=== PATIENT | female | born 1950 | race Caucasian/White ===

== ENCOUNTER 2018-09-18 15:07 | Observation (INO) | payer OTHER, BC ==
[2018-09-18] MEDS ORDERED: SODIUM CHLORIDE 0.9% 500 ML INFUS.BAG IV ONE ×2 (15:53→21:29)
--- NOTE | 2018-09-18 16:00 | PDOC ---
History of Present Illness - General Chief Complaint: Weakness Stated Complaint: Blood Sugar Problem Time Seen by Provider: 09/18/18 15:51 - History of Present Illness Initial Comments: The patient is a 68F w/ a history of CAD/SC (plavix), T2DM, reported a-fib who presents for evaluation of generalized weakness, nausea, and NB diarrhea since 0200. Since that time she endorses general weakness/malaise. Patient reports finishing a course of abx 2wks ago for UTI. Denies fevers/chills, chest pain, LOWRY, blurry vision, abdominal pain, emesis, sick contacts. Denies falls/LOC Per daughter, patient is reportedly poorly controlled diabetic 2/2 non- compliance 09/18/18 16:06 Past History - Past Medical History Allergies/Adverse Reactions: Allergies Allergy/AdvReac Type Severity Reaction Status Date / Time aspirin Allergy Mild THROAT Verified 09/18/18 15:31 SWELLS Home Medications: Ambulatory Orders Clopidogrel Bisulfate [Plavix -] 75 mg PO DAILY 01/03/15 Levothyroxine [Synthroid -] 112 mcg PO DAILY 01/03/15 Rosuvastatin Calcium [Crestor] 10 mg PO DAILY 01/03/15 predniSONE [Deltasone -] 10 mg PO DAILY 01/03/15 Albuterol Sulfate Inhaler - [Ventolin HFA Inhaler -] 1 - 2 inh PO QID PRN Ranitidine HCl [Zantac 75] 75 mg PO DAILY 03/13/16 Hydroxyzine HCl 25 mg PO Q6H 09/18/18 Insulin Regular [NOVOLIN R VIAL *IVPUSH / ER / ICU Only*] 0 units SQ BIDAC 09/18 Anemia: No Asthma: Yes Cancer: No Cardiac Disorders: Yes (IRREGULAR HEART BEAT) CVA: No COPD: Yes CHF: No Dementia: No Diabetes: Yes GI Disorders: Yes (ACID REFLUX, PANCREATITIS) Disorders: No HTN: Yes Hypercholesterolemia: Yes Liver Disease: No Seizures: No Thyroid Disease: Yes (HYPO) - Surgical History Abdominal Surgery: Yes (REMOVE STONE IN BILE DUCT) Appendectomy: No Cardiac Surgery: No Cholecystectomy: Yes Lung Surgery: No Neurologic Surgery: No Orthopedic Surgery: No - Immunization History Immunization Up to Date: Yes - Suicide/Smoking/Psychosocial Hx Smoking Status: No Smoking History: Never smoked Have you smoked in the past 12 months: No Number of Cigarettes Smoked Daily: 0 If you are a former smoker, when did you quit?: 1979 Information on smoking cessation initiated: No Hx Alcohol Use: No Drug/Substance Use Hx: No Substance Use Type: None Hx Substance Use Treatment: No Review of Systems - Review of Systems Able to Perform ROS?: Yes Comments:: GENERAL/CONSTITUTIONAL: No fever or chills HEAD, EYES, EARS, NOSE AND THROAT: No change in vision. No ear pain or discharge. No sore throat CARDIOVASCULAR: No chest pain or shortness of breath GASTROINTESTINAL: per HPI GENITOURINARY: No dysuria, frequency, or change in urination MUSCULOSKELETAL: No joint or muscle swelling or pain. No neck or back pain SKIN: No rash NEUROLOGIC: No headache, vertigo, loss of consciousness, or change in strength/ sensation ENDOCRINE: No increased thirst. No abnormal weight change HEMATOLOGIC/LYMPHATIC: No anemia, easy bleeding, or history of blood clots ALLERGIC/IMMUNOLOGIC: No hives or skin allergy 09/18/18 15:56 Is the patient limited Portuguese proficient: No *Physical Exam - Vital Signs Last Vital Signs Temp Pulse Resp BP Pulse Ox 97.6 F 95 H 16 97/63 100 09/18/18 15:31 09/18/18 15:31 09/18/18 15:31 09/18/18 15:31 09/18/18 15:31 - Physical Exam Comments: GENERAL: Awake, tired appearing, and fully oriented, in no acute distress HEAD: No signs of trauma, normocephalic, atraumatic EYES: PERRLA, EOMI, sclera anicteric, conjunctiva clear ENT: Hearing grossly normal, nares patent, oropharynx clear without exudates. LUNGS: No distress, clear to auscultation bilaterally HEART: Regular rate and rhythm, normal S1 and S2, no murmurs appreciated, peripheral pulses normal and equal bilaterally ABDOMEN: Soft, nontender, normoactive bowel sounds. No guarding, no rebound EXTREMITIES : Normal inspection, Normal range of motion, no edema. No clubbing or cyanosis NEUROLOGICAL: Cranial nerves II through XII grossly intact. Normal speech, no focal sensorimotor deficits SKIN: Warm, Dry, normal turgor, no rashes or lesions noted 09/18/18 15:56 Moderate Sedation - Procedure Monitoring Vital Signs: Procedure Monitoring Vital Signs Temperature 97.6 F 09/18/18 15:31 Pulse Rate 95 H 09/18/18 15:31 Respiratory Rate 16 09/18/18 15:31 Blood Pressure 97/63 09/18/18 15:31 O2 Sat by Pulse Oximetry (%) 100 09/18/18 15:31 ED Treatment Course - LABORATORY CBC & Chemistry Diagram: 09/18/18 15:40 09/18/18 15:40 - RADIOLOGY Radiology Studies Ordered: Category Date Time Status HEAD CT WITHOUT CONTRAST [CT] Stat CT Scan 09/18/18 15:54 Ordered CHEST X-RAY PORTABLE* [RAD] Stat Radiology 09/18/18 15:36 Ordered Medical Decision Making - Medical Decision Making The patient is a 68F w/ a history of T2DM, SC, CAD (plavix) who presents for generalized weakness/malaise and diarrhea/nausea since 199. ED Course CMP, CBC, cardiac enzymes, coags, UA, c. diff ECG CXR, CT head 1L NS 09/18/18 15:56 Cr 1.6 (1.0 previous) Trop I neg Lytes wnl LFTs wnl At CT 09/18/18 17:02 Hyperglycemia 318 09/18/18 17:29 CT head w/o acute pathology Plan for admission for DEVORAH, hyperglycemia, and dehydration 09/18/18 19:29 T 100.5, will give Ofirmev 1g IV once 09/18/18 19:39 BG 430s, will give Insulin 10u SQ once Repeat SBP 80s, will give additional 1L NS 09/18/18 21:34 Fluid responsive, Hyperglycemia sith improvement s/p insulin Pt no longer febrile HR 90s Dispo: Admit *DC/Admit/Observation/Transfer Diagnosis at time of Disposition: Weakness, Dehydration, DEVORAH (acute kidney injury) Diarrhea Qualifiers: Diarrhea type: unspecified type Qualified Code(s): R19.7 - Diarrhea, unspecified - Discharge Dispostion Condition at time of disposition: Fair Decision to Admit order: Yes - Referrals - Patient Instructions - Post Discharge Activity
--- NOTE | 2018-09-18 16:15 | PDOC ---
Attending Attestation - Resident Resident Name: Stan Young - ED Attending Attestation I have performed the following: I have examined & evaluated the patient, The case was reviewed & discussed with the resident, I agree w/resident's findings & plan - HPI HPI: 09/18/18 16:10 68-year-old female with history of diabetes and COPD visiting from [place] presents with family for generalized weakness with vomiting and diarrhea. Patient was in her usual state of health, fell asleep around 5 AM this morning, awoke around 1 PM feeling generally weak, went to the bathroom but was unable to make it to the toilet, called her granddaughter for help and required assistance with ambulation, there was no actual fall or head injury, was noted to have nausea with decreased by mouth intake, an episode of vomiting the emergency department, otherwise ongoing liquidy nonbloody stool. No abdominal pain, no recent fevers or chills, does have history of UTIs and completed her last course of antibiotics 2 weeks ago, no other travel. Reports her glucose levels have been within normal limits, has no cardiac pulmonary complaints. - Physicial Exam PE: 09/18/18 16:13 afebrile, vital signs within normal limits Alert but very weak appearing, dry mucosa, slight tremors Exam is atraumatic Dry mucosa Heart is regular slight tachycardia, lungs are clear Abdomen is soft/nontender/nondistended Trace edema Neurologically nonfocal - Medical Decision Making 09/18/18 16:13 68-year-old female with history of diabetes and COPD presents with generalized weakness in the setting of vomiting and diarrhea today, appears dehydrated. Does not meets Sirs her sepsis criteria, question gastritis and dehydration, rule out DKA, rule out UTI, given persistent diarrhea in the setting of recent antibiotics, rule out C. difficile. Labs, urinalysis IV fluid rehydration EKG, chest x-ray, CT head Admission Heart Score/ECG Review #1 General ECG Interpretation: Sinus Rhythm (tachy), Normal Intervals (long qtc 500 ), No acute ischemic changes (precordial q waves)
[2018-09-18 16:31] LABS: INR 0.97 (0.83-1.09); PROTHROMBIN TIME (PATIENT) 11.4 SEC (9.7-13.0)
[2018-09-18 16:34] LABS: ACTIVATED PTT 27.6 SECONDS (25.2-36.5)
[2018-09-18 16:59] LABS: ALBUMIN 3.3 g/dl (3.4-5.0); ALK PHOS 85 U/L (45-117); ANION GAP 9 MMOL/L (8-16); BILIRUBIN,TOTAL 0.5 mg/dL (0.2-1); BLOOD UREA NITROGEN 27 mg/dL (7-18); CALCIUM 9.3 mg/dL (8.5-10.1); CHLORIDE 101 mmol/L (98-107); CO2 26 mmol/L (21-32); CREATININE 1.6 mg/dL (0.55-1.3); HEMATOCRIT 38.9 % (32.4-45.2); HEMOGLOBIN 13.2 GM/dL (10.7-15.3); MCH 29.5 pg (25.7-33.7); MCHC 33.9 g/dl (32.0-36.0); MEAN CELL VOLUME 86.9 fl (80-96); MEAN PLT VOLUME 10.3 fl (7.5-11.1); PLATELET COUNT 214 K/MM3 (134-434); RBC 4.47 M/mm3 (3.60-5.2); RDW 14.4 % (11.6-15.6); SGOT/AST 17 U/L (15-37); SGPT/ALT 28 U/L (13-61); SODIUM 136 mmol/L (136-145); TOT PROT 7.3 g/dl (6.4-8.2); WHITE BLOOD COUNT 11.3 K/mm3 (4.0-10.0)
[2018-09-18 17:06] LABS: GLUCOSE,RANDOM 318 mg/dL (74-106)
[2018-09-18] MEDS ORDERED: ONDANSETRON 4 MG/2 ML VIAL IVPUSH ONE (17:16)
[2018-09-18] MEDS ORDERED: ONDANSETRON 4 MG/2 ML VIAL ONE (17:18)
[2018-09-18] MEDS ORDERED: ACETAMINOPHEN INJECTION 100 ML IVPB ONE (19:38)
[2018-09-18] MEDS ORDERED: ACETAMINOPHEN 1000 MG/100 ML VIAL (NON FORMULARY) IVPB ONE (19:38)
[2018-09-18] MEDS ORDERED: INSULIN (NOVOLOG) ASPART 100 UNITS/ML 10ML VIAL SQ ONE (21:33)
[2018-09-18] MEDS ORDERED: INSULIN REGULAR HUMAN 100 UNITS/ML *VIAL ONE ×2 (21:37→22:57)
[2018-09-18] MEDS ORDERED: ONDANSETRON 4 MG/2 ML VIAL IVPUSH PRN (22:04)
[2018-09-18] MEDS ORDERED: LACTATED RINGERS SOLUTION 1,000 ML IV SCH (22:30)
[2018-09-18] MEDS: INSULIN SLIDING SCALE (NOVOLOG) 1 VIAL SQ SCH (22:54)
--- NOTE | 2018-09-18 22:54 | PN ---
Teaching Attending Note Name of Resident: Shankar Farfan ATTENDING PHYSICIAN STATEMENT I saw and evaluated the patient. I reviewed the resident's note and discussed the case with the resident. I agree with the resident's findings and plan as documented. SUBJECTIVE: Seen and examined; this is a 68 y/o CF with a complex PMH; she used to follow here and then moved to [place] in 2016. She no longer follows with any physicians here in [place]. She presents to the ER with a CC of diarrhea x1 days accompanied with weakness. She was having trouble making it out of the washroom herself, etc. She stated the weakness had been progressive for months. She was found to have a slightly low BP in the 90s with acceptable MAP. This was confirmed on manual inspection. She completed a course of abx given to her by her home physicians ~2 weeks ago; does not recall the drug that she took. Further review of her chart shows that her EF on a 2014 stress test was estimated at 30 % with global hypokinesis; I was unable to find any echocardiograms, etc. She entirely denies any cardiopulmonary complaints today including CP, SOB. She got 2L of fluid from what i am able to tell. No recorded episodes of diarrhea since she has been here in the hospital. Her VS improved throughout her time in the emergency room with her being completely normotensive now with normal HR. She had a low grade fever recorded x1. Unfortunately is a somewhat poor historian. I should add that she is quite hyperglycemic today and she admits to skipping her insulin 10 sys ROS done and negative aside from HPI PMH significant for COPD, DM, GERD, HTN, HLD; PSH significant for cholecystectomy FH significant for other with CAD Social history significant for remote former smoker with no drug or alcohol abuse noted. OBJECTIVE: VS, labs, imaging reviewed. NAD, AAOx3, resting in bed NT to deep palpation, ND, +BSx4 RRR s1/2 no mgr CN2-12 wnl, no fnd Trace LE edema, no macario JVD but will go up ~1cm with eliciting HJR CN AT EOMI PERRLA Skin pale without any rashes or abrasions Labs reviewed; CBC with WBC 11 without differential; BMP shows a glucose in the 300s with repeat >400 with a Cr of 1.6; her A1c is documented in old notes as being ~12. Old Stress test 2014 shows EF ~30%; no old echos or cath reports CXR unremarkable UA shows glucosuria and proteinuria with no convincing signs of infection ASSESSMENT AND PLAN: This is a 68 y/o presenting with diarrhea with recent abx use; cdif/lactoferrin pending. She was somewhat hypotensive and mildly tachycardic on admission which resumed rapidly. 1) Acute Diarrheal Illness, low grade fevers with mild tachycardia -Viral vs. bacterial given diarrhea, risk factors for cdif. The diarrhea likely lead to fluid depletion. -Obtain lactoferrin, cdif, trend white count, check ESR -Followup blood cultures; difficult to say for certain if she needs abx. She was not technically febrile. She because hypothermic only after dropping her glucose. Will empiriclly cover with IV ceftriaxone and IV metro. DC the metro if she is negative for the cdif; clinically determine if ceftriaxone needed once workup completes. She is an uncontrolled diabetic so would be at risk from decompesating if an infection is mssed. Given the fluctuations seen in her BP and temperature will opt to check a TSH and AM cortisol 2) Hyperglycemia, hypoglycemia with hypothermia in setting of DM -Temp dropped after being given insulin and becoming hypoglycemic. PRN warming. She needs home meds reconciled and SSI; continue home insulin at basal holding any PO meds. -Grossly uncontrolled A1c 3) Severe cardiomyopathy, EF 30% 2014 -Caution with fluids, check echo given slight bump in BMP -On RA without issues 4) COPD -No exacerbation by GOLD criteria; PRN nebs and continued home therapies ( appears to be on chronic steroids, continuing prednisone) 5) GERD -Nonacute 6) HTN -Hold any meds 7) HLD -Nonacute; OP followup Full Code
--- NOTE | 2018-09-18 23:01 | HP ---
CHIEF COMPLAINT: Weakness, Diarrhea PCP: In [place], no longer sees [facility] Aldana since she moved in 2016 HISTORY OF PRESENT ILLNESS: 68 yo female with PMH of CAD s/p RI (on plavix), poorly controlled IDDM, Asthma , presented to the ED with complaint of diarrhea, nausea, and associated weakness that started about 8 hours ago. She was also noted to have one episode of nonbloody emesis in the ED. She states that she went to sleep around 5 am and woke up around 1 pm. At that time she started to not feel well and have nonbloody diarrhea. She attempted to ambulate to the bathroom and required assistance which she usually does not require and felt she needed to come to the ED for evaluation. She states that she has had 3 UTIs in the last 2 years with the most recent being 3 weeks ago. She completed a course of Abx 2 weeks ago and does not know which one. She currently denies any urinary symptoms at this time. ER course was notable for: (1) Hypotension, fluid responsive, 2L NS (2) TMax: 100.5 (3) C. dif studies pending Recent Travel: From [place] where she lives, no recent foreign travel PAST MEDICAL HISTORY: CAD s/p RI (on plavix), poorly controlled IDDM, Asthma PAST SURGICAL HISTORY: Cholecystectomy B/l total knees Social History: Smoking: Former social smoker on the weekends, quit many years ago Alcohol: Denies Drugs: Denies Family History: Allergies aspirin Allergy (Mild, Verified 09/18/18 15:31) THROAT SWELLS HOME MEDICATIONS: Home Medications Medication Instructions Recorded Clopidogrel Bisulfate [Plavix -] 75 mg PO DAILY 01/03/15 Levothyroxine [Synthroid -] 112 mcg PO DAILY 01/03/15 Rosuvastatin Calcium [Crestor] 10 mg PO DAILY 01/03/15 predniSONE [Deltasone -] 10 mg PO DAILY 01/03/15 Albuterol Sulfate Inhaler - 1 - 2 inh PO QID PRN 06/19/15 [Ventolin HFA Inhaler -] Ranitidine HCl [Zantac 75] 75 mg PO DAILY 03/13/16 Hydroxyzine HCl 25 mg PO Q6H 09/18/18 Insulin Regular [NOVOLIN R VIAL 0 units SQ BIDAC 09/18/18 *IVPUSH / ER / ICU Only*] REVIEW OF SYSTEMS CONSTITUTIONAL: chills, generalized weakness, malaise Absent: fever, diaphoresis, , loss of appetite, weight change HEENT: nasal congestion Absent: rhinorrhea,, throat pain, throat swelling, difficulty swallowing, mouth swelling, ear pain, eye pain, visual changes CARDIOVASCULAR: Absent: chest pain, syncope, palpitations, irregular heart rate, lightheadedness , peripheral edema RESPIRATORY: Absent: cough, shortness of breath, dyspnea with exertion, orthopnea, wheezing, stridor, hemoptysis GASTROINTESTINAL: nausea, vomiting, diarrhea, Absent: abdominal pain, abdominal distension,constipation, melena, hematochezia GENITOURINARY: Absent: dysuria, frequency, urgency, hesitancy, hematuria, flank pain, genital pain MUSCULOSKELETAL: Absent: myalgia, arthralgia, joint swelling, back pain, neck pain SKIN: Absent: rash, itching, pallor HEMATOLOGIC/IMMUNOLOGIC: Absent: easy bleeding, easy bruising, lymphadenopathy, frequent infections ENDOCRINE: Absent: unexplained weight gain, unexplained weight loss, heat intolerance, cold intolerance NEUROLOGIC: Absent: headache, focal weakness or paresthesias, dizziness, unsteady gait, seizure, mental status changes, bladder or bowel incontinence PSYCHIATRIC: Absent: anxiety, depression, suicidal or homicidal ideation, hallucinations. PHYSICAL EXAMINATION Vital Signs - 24 hr 09/18/18 09/18/18 09/18/18 15:31 16:32 19:05 Temperature 97.6 F 100.5 F H Pulse Rate 95 H Pulse Rate [ 109 H Left Radial] Respiratory 16 16 Rate Blood Pressure 97/63 Blood Pressure 120/67 [Left Arm] O2 Sat by Pulse 100 97 95 Oximetry (%) 09/18/18 21:30 Temperature 99.0 F Pulse Rate Pulse Rate [ 100 H Left Radial] Respiratory 16 Rate Blood Pressure Blood Pressure 86/46 L [Left Arm] O2 Sat by Pulse 97 Oximetry (%) GENERAL: A&O, no acute distress, malaise HEAD: Normocephalic, atraumatic. EYES: PERRL, no scleral icterus EARS, NOSE, THROAT: oropharynx clear without exudates. Moist mucous membranes. NECK: supple without lymphadenopathy LUNGS: CTA b/l, no crackles or wheezes HEART: Regular rate and rhythm, normal S1 and S2 without murmur ABDOMEN: Soft, nontender to palpation, normoactive bowel sounds EXTREMITIES: 2+ pulses, warm, well-perfused. No peripheral edema. NEUROLOGICAL: Cranial nerves II-XII grossly intact. Laboratory Results - last 24 hr 09/18/18 09/18/18 09/18/18 15:40 15:40 15:40 WBC 11.3 H RBC 4.47 Hgb 13.2 Hct 38.9 D MCV 86.9 MCH 29.5 MCHC 33.9 RDW 14.4 Plt Count 214 D MPV 10.3 PT with INR 11.40 INR 0.97 PTT (Actin FS) 27.6 Sodium 136 Potassium 4.0 Chloride 101 Carbon Dioxide 26 Anion Gap 9 BUN 27 H Creatinine 1.6 H Creat Clearance w eGFR 32.15 POC Glucometer Random Glucose 318 H* Calcium 9.3 Total Bilirubin 0.5 AST 17 ALT 28 Alkaline Phosphatase 85 Creatine Kinase 83 Troponin I < 0.02 Total Protein 7.3 Albumin 3.3 L 09/18/18 21:28 WBC RBC Hgb Hct MCV MCH MCHC RDW Plt Count MPV PT with INR INR PTT (Actin FS) Sodium Potassium Chloride Carbon Dioxide Anion Gap BUN Creatinine Creat Clearance w eGFR POC Glucometer > 400 Random Glucose Calcium Total Bilirubin AST ALT Alkaline Phosphatase Creatine Kinase Troponin I Total Protein Albumin ASSESSMENT/PLAN: 68 yo female with PMH of CAD s/p RI (on plavix), poorly controlled IDDM, Asthma , presented to the ED with complaint of diarrhea, nausea, and associated weakness Fluid Depletion likely secondary to Diarrheal illness -Likely viral diarrheal illness though recent Abx use warrants C. dif workup -C. dif pending -Lactoferrin -ESR -2L NS given in ED with response of hypotension -Old echo noted with poor EF and global hypokinesis, will hold further maintenance fluid for now and monitor b.p. -With Low grade fever 100.5, Tachycardia low 100s and 90s, and mild hypotension noted, will monitor for siginificant source of bacterial infection -UA pending Hyperglycemia -Repeat BGM elevated above 400, 10 units of insulin given, repeat to 393 -Pt has history of poorly controlled IDDM and states she often forgets her insulin -Repeat BGM in 1 hour and will give insulin accordingly -BGM Q3 for now with sliding scale for coverage -No elevation of anion gap Asthma -Albuterol IH Q4 PRN CAD s/p RI -EKG noted with prior infarct but no acute concerning ST/T wave abnormalities -Continue Plavix 75 mg PO Daily DVT Prophylaxis -Heparin 5000 units SQ TID FEN -Fluids: LR @ 100 cc/hr -Electrolytes: No electrolyte abnormalities, BMP in AM -Nutrition: Diabetic, Sodium controlled diet as tolerated Disposition Observation Visit type - Emergency Visit Emergency Visit: Yes ED Registration Date: 09/18/18 Care time: The patient presented to the Emergency Department on the above date and was hospitalized for further evaluation of their emergent condition. - New Patient This patient is new to me today: Yes Date on this admission: 09/21/18 - Critical Care Critical Care patient: No
[2018-09-19 02:51] LABS: URINE APPEARANCE CLOUDY; URINE BILIRUBIN NEGATIVE (<2.0 mg/dL); URINE COLOR DKYELLOW; URINE GLUCOSE (UA) 3+ (NEGATIVE); URINE KETONE NEGATIVE (NEGATIVE); URINE LEUK ESTERASE 1+ (NEGATIVE); URINE NITRITE NEGATIVE (NEGATIVE); URINE PROTEIN 2+ (NEGATIVE); URINE UROBILINOGEN NEGATIVE mg/dL (0.2-1.0)
[2018-09-19 02:56] LABS: EPI CELLS FEW /HPF (FEW); URINE BACTERIA RARE /hpf (NONE SEEN); URINE HYALINE CAST 33 /lpf; URINE MUCUS RARE
[2018-09-19] MEDS ORDERED: DEXTROSE 50%-WATER - 25 GM/50 ML VIAL IVPUSH PRN (05:49)
[2018-09-19] MEDS ORDERED: DEXTROSE 50%-WATER 25 GM/50 ML DISP.SYRIN ONE (05:49)
[2018-09-19] MEDS ORDERED: HEPARIN NA (PORCINE) 5,000 UNITS/ML 1ML VIAL ONE (06:03)
[2018-09-19] MEDS: HEPARIN NA (PORCINE) 5,000 UNITS/ML 1ML VIAL SQ SCH ×3 (06:07→21:31)
[2018-09-19 07:46] LABS: BASO % 0.1 % (0-2.0); EOS % 2.4 % (0-4.5); HEMATOCRIT 32.9 % (32.4-45.2); HEMOGLOBIN 10.8 GM/dL (10.7-15.3); LYMPH % 9.4 % (8-40); MCH 28.6 pg (25.7-33.7); MCHC 32.8 g/dl (32.0-36.0); MEAN CELL VOLUME 87.1 fl (80-96); MEAN PLT VOLUME 9.8 fl (7.5-11.1); MONO % 8.8 % (3.8-10.2); NEUT % 79.3 % (42.8-82.8); PLATELET COUNT 162 K/MM3 (134-434); RBC 3.78 M/mm3 (3.60-5.2); RDW 13.9 % (11.6-15.6); WHITE BLOOD COUNT 10.1 K/mm3 (4.0-10.0)
[2018-09-19 07:54] LABS: ANION GAP 9 MMOL/L (8-16); BLOOD UREA NITROGEN 30 mg/dL (7-18); CALCIUM 7.9 mg/dL (8.5-10.1); CHLORIDE 108 mmol/L (98-107); CO2 24 mmol/L (21-32); CREATININE 1.3 mg/dL (0.55-1.3); GLUCOSE,RANDOM 165 mg/dL (74-106); MAGNESIUM 1.4 mg/dL (1.8-2.4); PHOSPHOROUS 3.7 mg/dL (2.5-4.9); POTASSIUM 3.6 mmol/L (3.5-5.1); SODIUM 141 mmol/L (136-145)
[2018-09-19] MEDS ORDERED: CEFTRIAXONE 1 GM in DEXTROSE 5%-WATER - 50 ML IVPB ONE ×2 (09:00→14:45)
--- NOTE | 2018-09-19 09:02 | PN ---
Physical Exam: SUBJECTIVE: Patient is a 68 year old female with a history of CAD s/p VT, DM, and asthma who is admitted for diarrhea and nausea. Patient is very lethargic upon examination. Reports she does not have any pain. Overnight she was given 30 units of insulin and her sugar dropped to the 40's. Repeat BGM was been 220. Patients temperature 93.8, currently on bear hugger. OBJECTIVE: Vital Signs Temperature 93.8 F L 09/19/18 06:42 Pulse Rate 79 09/19/18 07:15 Respiratory Rate 18 09/19/18 07:15 Blood Pressure 111/65 09/19/18 07:15 O2 Sat by Pulse Oximetry (%) 94 L 09/19/18 07:15 GENERAL: The patient is lethargic and alert HEAD: Normal with no signs of trauma. EYES: PERRL, extraocular movements intact LUNGS: Breath sounds equal, clear to auscultation bilaterally, no wheezes, no crackles, no accessory muscle use. HEART: Regular rate and rhythm, S1, S2 without murmur, rub or gallop. ABDOMEN: Soft, nontender, nondistended, normoactive bowel sounds, no guarding, no rebound, no hepatosplenomegaly EXTREMITIES: 2+ pulses, warm, well-perfused, no edema. PSYCH: Normal mood, normal affect. SKIN: Warm, dry, normal turgor, no rashes or lesions noted Laboratory Results - last 24 hr CBC, BMP 09/19/18 07:05 09/19/18 06:00 Active Medications Clopidogrel Bisulfate (Plavix -) 75 mg PO DAILY [facility] Dextrose (D50w (Vial) -) 25 gm IVPUSH PRN PRN PRN Reason: HYPOGLYCEMIA Last Admin: 09/19/18 06:02 Dose: 25 gm Heparin Sodium (Porcine) (Heparin -) 5,000 unit SQ TID RYDER Last Admin: 09/19/18 06:07 Dose: 5,000 unit Ceftriaxone Sodium 1 gm/ (Dextrose) 50 mls @ 100 mls/hr IVPB ONCE ONE Stop: 09/19/18 09:29 Metronidazole (Flagyl 500mg Premixed Ivpb -) 500 mg in 100 mls @ 100 mls/hr IVPB Q8H-IV RYDER Insulin Aspart (Novolog Vial Sliding Scale -) 1 vial SQ Q3H RYDER; Protocol Last Admin: 09/18/18 22:54 Dose: 10 units Levothyroxine Sodium (Synthroid -) 112 mcg PO AM RYDER Ondansetron HCl (Zofran Injection) 4 mg IVPUSH Q6H PRN PRN Reason: NAUSEA Prednisone (Deltasone -) 10 mg PO DAILY RYDER Rosuvastatin Calcium (Crestor -) 10 mg PO HS [facility] ASSESSMENT/PLAN: Patient is a 68 year old female with a history of CAD s/p VT, DM, and asthma who is admitted for diarrhea and nausea. #diarrhea and nausea - likley viral, r/o c. diff, - c. diff negative, f/u lactoferrin - currently off abx - TSH, cortisol pending - metronidzaole 500 mg q8h - f/u CT of abd and pevlis #UTI - UA LE 1+, WBC 31, epithelial cells few - given one dose Ceftriaxone #hypothermia in setting of hypoglycemia - BGM from 40 to 220 with D50 - Hgb A1C : 13.4 - BGM Q3 with SS - temp 98.3, currently on bear hugger #hypothermia with hypothyroidism - TSH: 9 - restart levothyroxine 122 mcg per day - continue prednisone 10 mg daily #CAD s/p VT - continue plavix 75 mg daily - EKG: noted no ST/T wave abnormalities - 2014 stress test showed EF of 30%, global hypokinesis - echo EF: 50-55%, LV systolic fxn normal, impaired LV relaxation, RV normal in size and function, normal left and right atrial, mitral valve and tricuspid valve normal #asthma - albuterol IH q4 prn #hyperlipidemia - Rosuvastatin 10 mg hs #DVT ppx - heparin 5000 units sq TID #FEN - replete Mg, follow Dispo: f/u CT abd, if symptoms resolve can likely go tomorrow Visit type - Emergency Visit Emergency Visit: No - New Patient This patient is new to me today: No - Critical Care Critical Care patient: No
[2018-09-19] MEDS ORDERED: MAGNESIUM OXIDE 400 MG TABLET (FP) PO ONE ×2 (10:00→16:45)
[2018-09-19] MEDS ORDERED: LEVOTHYROXINE NA 112 MCG TABLET (FP) PO SCH (10:00)
--- NOTE | 2018-09-19 10:17 | EKG ---
Test Reason : Blood Pressure : / mmHG Vent. Rate : 095 BPM Atrial Rate : 095 BPM P-R Int : 184 ms QRS Dur : 098 ms QT Int : 398 ms P-R-T Axes : 061 -51 054 degrees QTc Int : 500 ms NORMAL SINUS RHYTHM LEFT AXIS DEVIATION INFERIOR INFARCT (CITED ON OR BEFORE 29-NOV-2013) ANTEROLATERAL INFARCT (CITED ON OR BEFORE 21-AUG-2012) ABNORMAL ECG Confirmed by GABINO ELIZABETH MD ([id number]) on 09/19/2018 10:17:39 AM Referred By: Confirmed By:GABINO ELIZABETH MD
--- NOTE | 2018-09-19 12:23 | PN ---
Teaching Attending Note Name of Resident: Natalie Griffin ATTENDING PHYSICIAN STATEMENT I saw and evaluated the patient. I reviewed the resident's note and discussed the case with the resident. I agree with the resident's findings and plan as documented. SUBJECTIVE: denies abd pain, denies dysuria, denies fever at home. reported diarrhea , but it had stopped . has no cough, SOB , or sputum production. she takes 10 mg of prednisone daily but she missed yesterday's dose. has not taken her synthroid x 1 week since she came to [place]. OBJECTIVE: NAD , awake, oriented, knows details about her condition HEENT: dry MM. no facial droop. EOMI, round equal pupils, reactive to light . CV: RRR, no MRG . No JVD Lungs: CTAB Ext : no edema or erythema . skin No rash , No decub ulcers on gluteal area Abd: soft, NT, ND , decreased BS ASSESSMENT AND PLAN: 68 y/o lady with h/o hypothyroidism ,HLP, COPD on chronic prednisone , DM, GERD , CAD on plavix, cardiomyopathy , UTI who is visiting [facility], and presented with diarrhea and fatigue. she was found to be hypothermic, and hypotensive 1- Possible severe sepsis: unclear of source, but with diarrhea and recent Abx , colitis and c diff need to be r/o. she also has pyuria , --> ? UTI - check CT of abd and pelvis with po and IV contrast - cont Ceftriaxone and flagyl - follow c diff, blood and urine cx . 2- Hypothermia nad hypotension: came in with fever then hypothermic and hypotensive, with hypoglycemia. likely due to sepsis. doubt acute adrenal crisis ( missed only one dose of steroids yesterday) - Cortisole level pending - add ACTH - cont home steorids - BP and temp already improved - TSH , 9.5 indicating non compliance but no suspicion for myxedema coma. cont home synthroid 3- DEVORAH : likely due to volume depletion , improved resume IVF 4- H/o DM , takes 40 units of long acting( ?), and SSI Novoolog. - hypoglycemic in ER. - monitor on SSI for now , if sugar is elevated again, can resume long acting at a lower dose 5- h/o Cardiomyopathy, hypokinesis, EF of 33 % per a stress test in 2014. - no signs of fluid overload. volume depleted - echo - EKG with severe L axis deviation , and Q waves in inferior leads 6- Replete Mg 7- H/o COPD . not active , inhalers, home steroids 10 mg daily Meds bottles reviewed with patient, some are missing, will confirm with her daughter and pharmacy in [place] .
[2018-09-19 13:33] VITALS: BMI 31.3
[2018-09-19] MEDS ORDERED: DEXTROSE 5%-WATER - 50 ML IVPB ONE (14:50)
[2018-09-19] MEDS ORDERED: cefTRIAXone SODIUM 1 GM VIAL ONE (14:50)
[2018-09-19] MEDS: CLOPIDOGREL BISULFATE 75 MG TABLET (FP) PO SCH (14:58)
[2018-09-19] MEDS: INSULIN SLIDING SCALE (NOVOLOG) 1 VIAL SQ SCH ×2 (14:58→17:26)
[2018-09-19] MEDS: predniSONE 10 MG TABLET (UD) PO SCH (14:58)
[2018-09-19] MEDS: SODIUM CHLORIDE 1,000 ML IV SCH (16:00)
[2018-09-19] MEDS: LEVOTHYROXINE NA 112 MCG TABLET (FP) PO SCH (16:39)
[2018-09-19] MEDS ORDERED: CEFTRIAXONE 1,000 MG in DEXTROSE 5%-WATER - 50 ML IVPB SCH (16:45)
[2018-09-19] MEDS ORDERED: ROSUVASTATIN CA 10 MG TABLET (FP) PO SCH (22:00)
[2018-09-20] MEDS ORDERED: PT OWN MED DRAWER 7, Y5N ONE (05:47)
[2018-09-20] MEDS: HEPARIN NA (PORCINE) 5,000 UNITS/ML 1ML VIAL SQ SCH ×2 (06:37→14:33)
[2018-09-20] MEDS: LEVOTHYROXINE NA 112 MCG TABLET (FP) PO SCH (06:37)
[2018-09-20] MEDS: INSULIN SLIDING SCALE (NOVOLOG) 1 VIAL SQ SCH ×5 (06:37→18:19)
[2018-09-20 07:36] LABS: HEMATOCRIT 33.8 % (32.4-45.2); HEMOGLOBIN 11.1 GM/dL (10.7-15.3); MCH 28.4 pg (25.7-33.7); MCHC 32.8 g/dl (32.0-36.0); MEAN CELL VOLUME 86.6 fl (80-96); MEAN PLT VOLUME 9.9 fl (7.5-11.1); PLATELET COUNT 167 K/MM3 (134-434); RBC 3.91 M/mm3 (3.60-5.2); RDW 14.1 % (11.6-15.6); WHITE BLOOD COUNT 8.1 K/mm3 (4.0-10.0)
[2018-09-20 08:12] LABS: ALBUMIN 2.6 g/dl (3.4-5.0); ALK PHOS 66 U/L (45-117); ANION GAP 9 MMOL/L (8-16); BILIRUBIN,TOTAL 0.2 mg/dL (0.2-1); BLOOD UREA NITROGEN 15 mg/dL (7-18); CALCIUM 7.8 mg/dL (8.5-10.1); CHLORIDE 107 mmol/L (98-107); CO2 25 mmol/L (21-32); CREATININE 0.9 mg/dL (0.55-1.3); GLUCOSE,RANDOM 200 mg/dL (74-106); SGOT/AST 11 U/L (15-37); SGPT/ALT 21 U/L (13-61); SODIUM 140 mmol/L (136-145)
[2018-09-20] MEDS ORDERED: cefTRIAXone SODIUM 1 GM VIAL ONE (08:59)
[2018-09-20] MEDS ORDERED: DEXTROSE 5%-WATER - 50 ML IVPB ONE (08:59)
[2018-09-20] MEDS: CLOPIDOGREL BISULFATE 75 MG TABLET (FP) PO SCH (09:14)
[2018-09-20] MEDS: predniSONE 10 MG TABLET (UD) PO SCH (09:14)
[2018-09-20] MEDS: SODIUM CHLORIDE 1,000 ML IV SCH (09:16)
[2018-09-20] MEDS ORDERED: CEFTRIAXONE 1 GM in DEXTROSE 5%-WATER - 50 ML IVPB SCH (10:00)
[2018-09-20] MEDS ORDERED: INSULIN (NOVOLOG) ASPART 100 UNITS/ML 10ML VIAL ONE (11:47)
--- NOTE | 2018-09-20 12:36 | PN ---
Physical Exam: SUBJECTIVE: Patient seen and examined at bedside. C/o generalized abdominal discomfort, multiple loose, watery BM's. Otherwise without complaint. OBJECTIVE: Vital Signs Period Temp Pulse Resp BP Sys/Walker Pulse Ox Last 24 Hr 97.5 F-99.1 F 84-92 18-20 127-142/59-72 98-98 GENERAL: The patient is resting in bed. in NAD HEAD: Normal with no signs of trauma. EYES: PERRL, extraocular movements intact, sclera anicteric, conjunctiva clear. ENT: Ears normal, nares patent, oropharynx clear without exudates, dry mucous membranes NECK: Trachea midline, supple. LUNGS: Breath sounds equal, clear to auscultation bilaterally, no wheezes, no crackles, no accessory muscle use. HEART: Regular rate and rhythm, S1, S2 without murmur, rub or gallop. ABDOMEN: Soft, nontender, nondistended, normoactive bowel sounds EXTREMITIES: 2+ pt pulses, warm, well-perfused, no edema. NEUROLOGICAL: Cranial nerves II through XII grossly intact. 5/5 motor strength in UE, LE. PSYCH: Normal mood, normal affect. SKIN: Warm, dry, normal turgor Laboratory Results 09/20/18 09/20/18 09/20/18 06:30 06:30 06:36 WBC 8.1 RBC 3.91 Hgb 11.1 Hct 33.8 MCV 86.6 MCH 28.4 MCHC 32.8 RDW 14.1 Plt Count 167 MPV 9.9 Sodium 140 Potassium 4.0 Chloride 107 Carbon Dioxide 25 Anion Gap 9 BUN 15 Creatinine 0.9 Creat Clearance w eGFR > 60 POC Glucometer 215 Random Glucose 200 H Calcium 7.8 L Total Bilirubin 0.2 AST 11 L ALT 21 Alkaline Phosphatase 66 Total Protein 6.0 L Albumin 2.6 L Cortisol AM Sample 09/19/18 09/19/18 09/19/18 08:20 08:20 11:17 TSH 9.02 H Cortisol AM Sample 9.6 ACTH Pending Active Medications Generic Name Dose Route Start Last Admin Trade Name Freq PRN Reason Stop Dose Admin Clopidogrel Bisulfate 75 mg 09/19/18 10:00 09/20/18 09:14 Plavix - PO 75 mg DAILY RYDER Administration Heparin Sodium (Porcine) 5,000 unit 09/19/18 06:00 09/20/18 06:37 Heparin - SQ 5,000 unit TID RYEDR Administration Sodium Chloride 1,000 mls @ 100 mls/hr 09/19/18 09:30 09/20/18 09:16 Normal Saline - IV 100 mls/hr ASDIR RYDER Administration Ceftriaxone Sodium 1 gm/ 50 mls @ 100 mls/hr 09/20/18 10:00 09/20/18 11:01 Dextrose IVPB 100 mls/hr DAILY RYDER Administration Insulin Aspart 1 vial 09/19/18 11:00 09/20/18 12:09 Novolog Vial Sliding Scale - SQ 2 units TIDAC RYDER Administration Protocol Insulin Detemir 15 units 09/20/18 22:00 Levemir Vial SQ HS RYDER Levothyroxine Sodium 112 mcg 09/19/18 14:45 09/20/18 06:37 Synthroid - PO 112 mcg DAILY@0700 RYDER Administration Ondansetron HCl 4 mg 09/18/18 22:04 Zofran Injection IVPUSH Q6H PRN NAUSEA Prednisone 10 mg 09/19/18 10:00 09/20/18 09:14 Deltasone - PO 10 mg DAILY RYDER Administration Rosuvastatin Calcium 10 mg 09/19/18 22:00 09/19/18 21:31 Crestor - PO 10 mg HS RYDER Administration ASSESSMENT/PLAN: Pt is a 68 y/o F with a history of CAD s/p [place], DM, and asthma who was admitted for diarrhea and nausea. Found to be hypothermic and hypotensive. #Severe sepsis - resolving -likely 2/2 gastroenteritis and possible UTI. presented with N/V/D, diarrhea has continued. consistent w/ CTAP -mildly dilated bowel loops -will continue to cover with rocephin 1g IVPB qd (Day1; was not given yesterday) , UCx pending -C.diff (-); have d/c flagyl #r/o adrenal insufficiency -less likely as pt only missed 1 dose of prednisone -cortisol 9.6 WNL, ACTH pending -may continue pred 10mg qd -elevated TSH; noncompliant with synthroid #DM -takes 40U basalglar at home. will start on 15U levemir qHS as without adequate PO intake currently -ISS TIDAC #DEVORAH - resolved #h/o CM 2014 -ECHO EF 55% #COPD -continue inhalers, prednisone 10mg qd #F/E/N IV NS 100 cc/hr continue to follow lytes full liq diet; diabetic #PPX Hep 5000 SQ TID #Dispo with improved abdom pain. if continues to improve, may be able to d/c tomorrow. still pending ucx d/w SW: requires home care services referral upon d/c Visit type - Emergency Visit Emergency Visit: No - New Patient This patient is new to me today: No - Critical Care Critical Care patient: No
--- NOTE | 2018-09-20 13:57 | PN ---
Teaching Attending Note Name of Resident: Kasia Peña ATTENDING PHYSICIAN STATEMENT I saw and evaluated the patient. I reviewed the resident's note and discussed the case with the resident. I agree with the resident's findings and plan as documented. SUBJECTIVE: No fever or chills. No abd pain, no N/V. has BM. OBJECTIVE: NAD, awake, oriented, HEENT: MMM CV: RRR, no MRG. No JVD Lungs: CTAB Ext : no edema or erythema . Abd: soft, NT, ND , decreased BS MS: no TTP over spine ASSESSMENT AND PLAN: 68 y/o lady with h/o hypothyroidism ,HLP, COPD on chronic prednisone , DM, GERD , CAD on plavix, cardiomyopathy , UTI who is visiting form [place], and presented with diarrhea and fatigue. she was found to be hypothermic, and hypotensive 1- sepsis: due to gastroenteritis and UTI. urine cx is contaminated , low yield of repeat cx. Ct of abd with dilated small bowel loops. indicating enteritis blood cx neg to date. c diff neg -dc flagyl - cont with keflex empirically for UTI. will give toal of 10 days ( 8 more left ) 2- Hypothermia and hypotension: resolved . cortisole , nl. TSH 9. - cont home syhnthroid 112 3- DEVORAH :resolved. encourage po hydration 4- H/o DM , resume long acting insulin . and SSI 5- h/o Cardiomyopathy, hypokinesis, EF of 33 % per a stress test in 2014. repeat echo yesterday with Nl EF. diastolic dysfunction 6- CT scan with possible herniated disk at level of L2-3. this finding was d/w radiologist Dr. Owens, who indicated a disk etiology and not epidural abscess. karen MRI as out pt Dispo : patient feels much better and wants to leave home. will dc with recommendation to stay hydrated, and not to stop her synthroid or steroids on her own. f/u as out pt with her PCP. need TSH in 8 weeks.
[2018-09-20 15:58] VITALS: BP 160/83; PULSE 88; TEMP 98
--- NOTE | 2018-09-20 16:59 | DS ---
Physical Exam: SUBJECTIVE: Patient seen and examined at bedside. States that she feels much better and would like to go home. With mild abdominal pain and one episode of watery diarrhea. No other complaints OBJECTIVE: Vital Signs Period Temp Pulse Resp BP Sys/Walker Pulse Ox Last 24 Hr 97.5 F-99.0 F 84-88 18-20 127-160/59-83 98-98 PHYSICAL EXAM GENERAL: The patient is awake, alert, and fully oriented, in no acute distress. HEAD: Normal with no signs of trauma. EYES: PERRL, extraocular movements intact, sclera anicteric, conjunctiva clear. ENT: Ears normal, nares patent, oropharynx clear without exudates, moist mucous membranes. NECK: Trachea midline, supple. LUNGS: Breath sounds equal, clear to auscultation bilaterally, no wheezes, no crackles, no accessory muscle use. HEART: Regular rate and rhythm, S1, S2 without murmur, rub or gallop. ABDOMEN: Soft, nontender, nondistended BACK: without TTP over spinous processes or para-spinal area EXTREMITIES: 2+ pt pulses, warm, well-perfused, no edema. NEUROLOGICAL: Cranial nerves II through XII grossly intact. 5/5 motor strength upper and lower ext. sensation intact. PSYCH: Normal mood, normal affect. SKIN: Warm, dry, normal turgor LABS Laboratory Tests 09/18/18 09/19/18 15:40 07:05 WBC 11.3 H 10.1 H 09/18/18 09/19/18 09/20/18 15:40 06:00 06:30 BUN 27 H 30 H 15 Creatinine 1.6 H 1.3 0.9 09/19/18 09/19/18 09/19/18 06:00 08:20 08:20 Random Glucose 165 H Magnesium 1.4 L TSH 9.02 H Cortisol AM Sample 9.6 ACTH 09/19/18 09/20/18 11:17 06:30 Random Glucose 200 H Magnesium TSH Cortisol AM Sample ACTH 10.1 Urinalysis 09/19/18 02:39 Ur Specific [place] 1.023 Urine Protein 2+ H Urine Glucose (UA) 3+ H Urine Ketones Negative Urine Blood 1+ H Urine Nitrite Negative Urine Bilirubin Negative Urine Urobilinogen Negative Ur Leukocyte Esterase 1+ H Urine WBC (Auto) 31 Ur Epithelial Cells Few Microbiology 09/19/18 02:39 Urine - Urine Clean Catch Urine Culture - Final Contaminated: Please Repeat 09/18/18 16:40 Stool Clostridium difficile Antigen (MANFRED) - Final 09/18/18 16:40 Stool Clostridium difficile Toxin Assay - Final 09/19/18 08:35 Blood - Peripheral Venous Blood Culture - Preliminary NO GROWTH OBTAINED AFTER 24 HOURS, INCUBATION TO CONTINUE FOR 4 DAYS. 09/19/18 08:20 Blood - Peripheral Venous Blood Culture - Preliminary NO GROWTH OBTAINED AFTER 24 HOURS, INCUBATION TO CONTINUE FOR 4 DAYS. Imaging CTAP: several mildly dilated fluid filled small bowed loops noted bilaterally which may be on the basis of current diarrheal illness. diffuse hepatic steatosis is noted which may be somewhat improved since 08/05/14 s/p cholecystectomy as seen prior small to moderate hiatal hernia small to moderate R inferolateral periumbilical hernia again noted containing fat only interval development of a L ventral epidural soft tissue focus seen within the central spinal canal at the level of L2 and L3 vertebral bodies which may represent a large extruded disc herniation and less likely epidural neoplastic disease - MRI evaluation is suggested which may be obtained as an outpatient unless otherwise clinically indicated Head CT: no acute dz. moderate b/l sphenoid, moderate b/l ethmoid , mild to moderate R maxillary and mild L maxillary mucosal thickening is seen consistent with sinusitis which is probably chronic or subacute. less likely acute. inspissated debris also seen in L sphenoid sinus. very small amt of fluid in L mastoid air cells HOSPITAL COURSE: Date of Admission:09/18/18 Date of Discharge: 09/20/18 Admit diagnosis: abdominal pain, N/V. hypothermic/hypotensive, sepsis 2/2 unknown etiology 68 y/o female with PMH of CAD s/p [place] (on plavix), poorly controlled IDDM ( likely due to poor sleeping schedule as per daughter), COPD, who presented to the ED with complaint of diarrhea, nausea, and associated weakness that started about 8 hours prior to admission. She was also noted to have one episode of NBNB emesis in the ED. However denied dysuria, LOWRY, fever, or chills. Her daughter had recommended that she come to the hospital for further evaluation. While in the ED, she was found to be hypotensive with systolic BP in 90's, thus she received 2L of NS. Responded well, improving BP to 130/70's. Also was initially febrile to 100.5F, became hypothermic to 93.6F and subsequently improved to normalize temp at 98F. D/t pt's diarrheal illness, she was tested for c.diff and was (-). She underwent CTAP which showed several mildly dilated small bowel loops which were consistent with her diarrhea. She was also found to have UTI on her UA, and d/t her septic picture she was tx with rocephin . Initial UCx was contaminated and repeat Cx was not done as pt was already on abx at this time. Her sx improved greatly and on day of discharge, she stated that she was feeling much better . Pt is d/c home on keflex 500 mg BID for 8 day course. Disc Herniation: CTAP also showed possible disc herniation at levels L1, L2. Recommended pt f/u as outpatient with PCP concerning MRI. Thyroid function: will need to have f/u TSH in 8 wks in case synthroid dosage needs to be adjusted. for now will continue synthroid 112 mcg as renewed adrenal fnc: initially this was of question while pt was in the hospital as she was hypotensive and hypothermic. however, she had only missed 1 dose of steroids. pt's cortisol returned WNL. pt encouraged to continue steroid dose upon discharge Minutes to complete discharge: 44 Discharge Summary Reason For Visit: ACUTE KIDNEY INJURY, HYPERGLYCEMIA AND WEAKNESS Current Active Problems Enteritis (Acute) Sepsis (Acute) UTI (urinary tract infection) (Acute) Condition: Improved - Instructions Diet, Activity, Other Instructions: You were in the hospital because you had abdominal pain, vomiting and diarrhea. You were found to have a low blood pressure and low body temperature. This was likely due to a stomach virus infection (gastroenteritis). This resolved with fluids and antibiotics. You were also found to have a urinary tract infection and acute renal failure You also had a CT scan which showed that you may have a herniated disc in your lower back. (at level L2-L3) Medications Please take the following antibiotic to finish treatment for your urinary tract infection: -Keflex 500mg (1 tab) twice a day, for eight more days. (starting 12/) You may continue your home medications. However we recommend that you take 20units of long acting insulin until your appetite is back to normal. then go back to full dose 40 units every evening as per your routine Care Stay hydrated. Please also continue to take your synthroid and steroids ( prednisone). Do not stop these medications on your own as this could be life threatening. Follow up Please follow up with your primary doctor, Dr. Bower in a week ([phone]) . You will need a repeat TSH in 8 weeks (for your thyroid). We will give you a script for this. We also recommend you talk to your primary care doctor about an MRI of your lumbar spine. If you develop shortness of breath, chest pain, or feel as if you will pass out , please go to the hospital. You need MRI imaging to your back after discharge. please indicate that to your primary care doctor ( to evaluate herniated disk ) Referrals: Enrique Bower [Other] - 1 Week Disposition: HOME - Home Medications Comprehensive Discharge Medication List: Ambulatory Orders Clopidogrel Bisulfate [Plavix -] 75 mg PO DAILY 01/03/15 Rosuvastatin Calcium [Crestor] 10 mg PO DAILY 01/03/15 Albuterol Sulfate Inhaler - [Ventolin HFA Inhaler -] 1 - 2 inh PO QID PRN Candesartan Cilexetil [Atacand -] 8 mg PO DAILY 09/19/18 Budesonide/Formeterol Fumarate [SYMBICORT 160/4.5mcg -] 1 puff IH BID 09/20/18 Cephalexin [Keflex] 500 mg PO BID #16 capsule 09/20/18 Insulin Glargine,Hum.rec.anlog [Basaglar Kwikpen U-100] 20 unit IM HS #1 vial Insulin Sliding Scale [Novolog Vial Sliding Scale -] 1 vial SQ TIDAC units 11/07 Levothyroxine [Synthroid -] 112 mcg PO DAILY #30 tablet 09/20/18 predniSONE [Deltasone -] 10 mg PO DAILY #30 tablet 09/20/18 This patient is new to me today: No Emergency Visit: No Critical Care patient: No - Discharge Referral Referred to [facility] Med P.C[facility] No
[2018-09-20] MEDS ORDERED: INSULIN (LEVEMIR) 100 UNITS/ML UNITS SQ SCH (22:00)
== END 2018-09-20 17:30 | disposition home or self-care (01) ==
LOC: JER 15:07 → JERBED 18:34 → UNDOADMOB 18:34 → JERBED 22:04 → J5S 09-19 13:13 → JERBED 09-19 13:13 → INTOOBSV 09-20 10:24 → OBSVTOIN 09-20 10:24
PROVIDERS: ADMIT Internal Medicine; ATTEND Internal Medicine
PROC: 3E0337Z Introduction of Electrolytic and Water Balance Substance into Peripheral Vein, Percutaneous Approach (ICD-10-PCS; principal; 2018-09-18)
PROC: 3E03329 Introduction of Other Anti-infective into Peripheral Vein, Percutaneous Approach (ICD-10-PCS; 2018-09-18)
PROC: 3E03329 Introduction of Other Anti-infective into Peripheral Vein, Percutaneous Approach (ICD-10-PCS; 2018-09-18)
PROC: 3E03329 Introduction of Other Anti-infective into Peripheral Vein, Percutaneous Approach (ICD-10-PCS; 2018-09-18)
PROC: 3E033NZ Introduction of Analgesics, Hypnotics, Sedatives into Peripheral Vein, Percutaneous Approach (ICD-10-PCS; 2018-09-18)
PROC: 3E033GC Introduction of Other Therapeutic Substance into Peripheral Vein, Percutaneous Approach (ICD-10-PCS; 2018-09-18)
PROC: 3E033GC Introduction of Other Therapeutic Substance into Peripheral Vein, Percutaneous Approach (ICD-10-PCS; 2018-09-18)
DX: A41.9 Sepsis, unspecified organism (principal); N39.0 Urinary tract infection, site not specified; K52.9 Noninfective gastroenteritis and colitis, unspecified; N17.9 Acute kidney failure, unspecified; I25.10 Atherosclerotic heart disease of native coronary artery without angina pectoris; I25.2 Old myocardial infarction; Z79.01 Long term (current) use of anticoagulants; E78.5 Hyperlipidemia, unspecified; E03.9 Hypothyroidism, unspecified; J44.9 Chronic obstructive pulmonary disease, unspecified; J45.909 Unspecified asthma, uncomplicated; E11.65 Type 2 diabetes mellitus with hyperglycemia; Z79.4 Long term (current) use of insulin; K21.9 Gastro-esophageal reflux disease without esophagitis; I95.9 Hypotension, unspecified; T68.XXXA Hypothermia, initial encounter; Z96.653 Presence of artificial knee joint, bilateral; Z88.6 Allergy status to analgesic agent
CPT/HCPCS: 36415; 70450-TC; 71045-TC-FY; 74177-TC; 80048; 80053; 81003; 81015; 82024; 82533; 82550; 82962; 83036; 83605; 83735; 83880; 84100; 84443; 84484; 85025; 85027; 85610; 85651; 85730; 87040; 87086; 87324; 87449; 93005; 93010; 93306-TC; 96361; 96365; 96367; 96374; 96375; 99285-25; G0378; J0131; J1644; J7030

== ENCOUNTER 2021-01-24 01:18 | Inpatient (IN) | payer OTHER, BC ==
[2021-01-24 03:32] LABS: BASO % 0.6 % (0-2.0); EOS % 0.7 % (0-4.5); HEMATOCRIT 25.9 % (32.4-45.2); HEMOGLOBIN 8.5 GM/dL (10.7-15.3); LYMPH % 8.1 % (8-40); MCH 28.6 pg (25.7-33.7); MCHC 32.7 g/dl (32.0-36.0); MEAN CELL VOLUME 87.2 fl (80-96); MONO % 4.4 % (3.8-10.2); NEUT % 86.2 % (42.8-82.8); PLATELET COUNT 243 K/MM3 (134-434); RBC 2.97 M/mm3 (3.60-5.2); RDW 14.6 % (11.6-15.6); WHITE BLOOD COUNT 7.4 K/mm3 (4.0-10.0)
[2021-01-24 03:39] LABS: INR 1.04 (0.83-1.09); PROTHROMBIN TIME (PATIENT) 12.6 SEC (9.7-13.0)
[2021-01-24 03:42] LABS: ACTIVATED PTT 27.2 SECONDS (25.2-36.5)
[2021-01-24 03:43] LABS: CALCIUM 7.2 mg/dL (8.5-10.1)
[2021-01-24 03:44] LABS: ALBUMIN 2.8 g/dl (3.4-5.0); BLOOD UREA NITROGEN 47.1 mg/dL (7-18); MAGNESIUM 1.3 mg/dL (1.8-2.4)
[2021-01-24 03:47] LABS: CREATININE 1.9 mg/dL (0.55-1.3)
[2021-01-24 03:48] LABS: BILIRUBIN,TOTAL 0.3 mg/dL (0.2-1)
[2021-01-24 03:52] LABS: N-TERMINAL BNP 20627.7 pg/ml (5-125); TOT PROT 6.6 g/dl (6.4-8.2)
[2021-01-24] MEDS ORDERED: FUROSEMIDE 40 MG/4 ML INJECTABLE VIAL IVPUSH ONE ×3 (03:53→17:54)
[2021-01-24] MEDS ORDERED: FUROSEMIDE 40 MG/4 ML INJECTABLE VIAL ONE ×2 (04:18→17:32)
[2021-01-24] MEDS ORDERED: MAGNESIUM SULF 50% (8.12 MEQ/2 ML-1 GM VIAL) IVPB ONE (07:46)
[2021-01-24] MEDS ORDERED: LOSARTAN POTASSIUM 50 MG TABLET PO SCH (10:00)
[2021-01-24] MEDS ORDERED: METOPROLOL TARTRATE 25 MG TABLET (FP) ONE (10:22)
[2021-01-24] MEDS ORDERED: LOSARTAN POTASSIUM 50 MG TABLET ONE ×2 (10:22→10:55)
[2021-01-24] MEDS ORDERED: ALBUTEROL SO4 2.5/IPRATROPIUM 0.5 INH SOL 3 ML VIAL.NEB. NEB ONE (10:22)
[2021-01-24] MEDS ORDERED: MAGNESIUM SULFATE IN WATER 2 GM/50 ML IVPB IVPB ONE (10:23)
[2021-01-24] MEDS: METOPROLOL TARTRATE 25 MG TABLET (FP) PO SCH ×2 (11:00→21:00)
[2021-01-24] MEDS: INSULIN SLIDING SCALE (NOVOLOG) 1 VIAL SQ SCH ×3 (11:00→21:01)
[2021-01-24] MEDS: ALBUTEROL SO4 2.5/IPRATROPIUM 0.5 INH SOL 3 ML VIAL.NEB. NEB SCH ×3 (11:43→20:50)
[2021-01-24] MEDS: LEVOTHYROXINE NA 112 MCG TABLET (FP) PO SCH (15:58)
[2021-01-24] MEDS: BUDESONIDE/FORMETEROL FUMARATE 160/4.5 mcg INHALER IH SCH ×2 (15:58→21:01)
[2021-01-24] MEDS: FUROSEMIDE 40 MG/4 ML INJECTABLE VIAL IVPUSH SCH (17:00)
[2021-01-24] MEDS ORDERED: HEPARIN NA (PORCINE) 5,000 UNITS/ML 1ML VIAL ONE (17:32)
[2021-01-24] MEDS: HEPARIN NA (PORCINE) 5,000 UNITS/ML 1ML VIAL SQ SCH ×2 (18:04→21:00)
[2021-01-24] MEDS: INSULIN (LEVEMIR) 100 UNITS/ML UNITS SQ SCH (21:00)
[2021-01-24] MEDS: ROSUVASTATIN CA 10 MG TABLET (FP) PO SCH (21:01)
[2021-01-24] MEDS: ACETAMINOPHEN 325 MG TABLET (FP) PO PRN (21:12)
[2021-01-24 23:10] LABS: EPI CELLS 2 /uL (0-25.1); HYALINE CASTS 0 /uL (0-3.1); URINE APPEARANCE CLEAR; URINE BACTERIA 50 /uL (0-1359); URINE BILIRUBIN NEGATIVE (NEGATIVE); URINE COLOR YELLOW; URINE GLUCOSE (UA) NEGATIVE (NEGATIVE); URINE KETONE NEGATIVE (NEGATIVE); URINE LEUK ESTERASE NEGATIVE (NEGATIVE); URINE NITRITE NEGATIVE (NEGATIVE); URINE PROTEIN TRACE (NEGATIVE); URINE RBC 8 /uL (0-23.9); URINE UROBILINOGEN 0.2 mg/dL (0.2-1.0); URINE WBC 31 /uL (0-25.8)
[2021-01-25] MEDS: ALBUTEROL SO4 2.5/IPRATROPIUM 0.5 INH SOL 3 ML VIAL.NEB. NEB SCH ×4 (01:52→20:16)
[2021-01-25] MEDS: ALBUTEROL SO4 HFA INHALER IH PRN ×2 (04:32→10:07)
[2021-01-25] MEDS: FUROSEMIDE 40 MG/4 ML INJECTABLE VIAL IVPUSH SCH ×2 (05:27→14:55)
[2021-01-25] MEDS: HEPARIN NA (PORCINE) 5,000 UNITS/ML 1ML VIAL SQ SCH (05:27)
[2021-01-25] MEDS: INSULIN SLIDING SCALE (NOVOLOG) 1 VIAL SQ SCH ×4 (06:04→21:21)
[2021-01-25] MEDS: INSULIN (LEVEMIR) 100 UNITS/ML UNITS SQ SCH ×2 (06:04→21:21)
[2021-01-25] MEDS: LEVOTHYROXINE NA 112 MCG TABLET (FP) PO SCH (06:05)
[2021-01-25 08:29] LABS: HEMATOCRIT 25.7 % (32.4-45.2); HEMOGLOBIN 8.4 GM/dL (10.7-15.3); MCH 28.6 pg (25.7-33.7); MCHC 32.8 g/dl (32.0-36.0); MEAN CELL VOLUME 87.1 fl (80-96); MEAN PLT VOLUME 10.1 fl (7.5-11.1); PLATELET COUNT 218 K/MM3 (134-434); RBC 2.95 M/mm3 (3.60-5.2); RDW 14.8 % (11.6-15.6)
[2021-01-25 08:44] LABS: BLOOD UREA NITROGEN 53.6 mg/dL (7-18); CALCIUM 7.9 mg/dL (8.5-10.1)
[2021-01-25 08:45] LABS: MAGNESIUM 1.7 mg/dL (1.8-2.4)
[2021-01-25 08:48] LABS: PHOSPHOROUS 4.2 mg/dL (2.5-4.9)
[2021-01-25] MEDS: METOPROLOL TARTRATE 25 MG TABLET (FP) PO SCH ×2 (10:06→21:20)
[2021-01-25] MEDS: BUDESONIDE/FORMETEROL FUMARATE 160/4.5 mcg INHALER IH SCH ×2 (10:09→21:22)
[2021-01-25] MEDS ORDERED: MAGNESIUM SULF 50% (8.12 MEQ/2 ML-1 GM VIAL) IVPB ONE (10:11)
[2021-01-25] MEDS: GABAPENTIN 300 MG CAPSULE PO SCH ×2 (14:54→21:21)
[2021-01-25 15:08] LABS: COCAINE, UR NEGATIVE ng/ml (CUTOFF=300); METHADONE, UR NEGATIVE ng/ml (CUTOFF=300); OPIATES, URI NEGATIVE ng/ml (CUTOFF=300); URINE AMPHETAMINES NEGATIVE ng/ml (CUTOFF=500); URINE BENZODIAZEPINES NEGATIVE ng/ml (CUTOFF=200)
[2021-01-25 15:09] LABS: PHENCYCLIDINE,URINE NEGATIVE ng/ml (CUTOFF=25)
[2021-01-25 15:27] LABS: URINE BARBITURATES NEGATIVE ng/ml (CUTOFF=200)
[2021-01-25] MEDS: FERROUS SO4 325 MG TABLET (FP) PO SCH (21:20)
[2021-01-25] MEDS: ROSUVASTATIN CA 10 MG TABLET (FP) PO SCH (21:20)
[2021-01-25] MEDS ORDERED: TRIMETHOBENZAMIDE HCL 300 MG CAPSULE PO PRN (22:16)
[2021-01-26] MEDS: ALBUTEROL SO4 2.5/IPRATROPIUM 0.5 INH SOL 3 ML VIAL.NEB. NEB SCH ×4 (02:16→20:07)
[2021-01-26] MEDS: FUROSEMIDE 40 MG/4 ML INJECTABLE VIAL IVPUSH SCH ×2 (06:01→14:40)
[2021-01-26] MEDS: GABAPENTIN 300 MG CAPSULE PO SCH ×3 (06:01→21:50)
[2021-01-26] MEDS: LEVOTHYROXINE NA 112 MCG TABLET (FP) PO SCH (06:02)
[2021-01-26] MEDS: INSULIN (LEVEMIR) 100 UNITS/ML UNITS SQ SCH ×2 (06:03→21:51)
[2021-01-26] MEDS: INSULIN SLIDING SCALE (NOVOLOG) 1 VIAL SQ SCH ×4 (06:03→21:51)
[2021-01-26] MEDS ORDERED: methylPREDNISolone NA SUCC 40 MG/1 ML VIAL IVPUSH SCH (10:15)
[2021-01-26] MEDS: PANTOPRAZOLE SODIUM 40 MG VIAL IVPUSH SCH (10:16)
[2021-01-26] MEDS: FERROUS SO4 325 MG TABLET (FP) PO SCH ×2 (10:17→21:50)
[2021-01-26] MEDS: METOPROLOL TARTRATE 25 MG TABLET (FP) PO SCH ×2 (10:18→21:50)
[2021-01-26 10:53] LABS: HEMATOCRIT 26.5 % (32.4-45.2); HEMOGLOBIN 8.8 GM/dL (10.7-15.3); MCH 28.4 pg (25.7-33.7); MEAN PLT VOLUME 9.5 fl (7.5-11.1); PLATELET COUNT 233 K/MM3 (134-434); RBC 3.09 M/mm3 (3.60-5.2); RDW 14.3 % (11.6-15.6); WHITE BLOOD COUNT 6.9 K/mm3 (4.0-10.0)
[2021-01-26 11:49] LABS: ALBUMIN 2.9 g/dl (3.4-5.0); BILIRUBIN,TOTAL 0.4 mg/dL (0.2-1); BLOOD UREA NITROGEN 55.5 mg/dL (7-18); CALCIUM 8.4 mg/dL (8.5-10.1); CREATININE 1.9 mg/dL (0.55-1.3); TOT PROT 6.4 g/dl (6.4-8.2)
[2021-01-26] MEDS ORDERED: INSULIN (NOVOLOG) ASPART 100 UNITS/ML 10ML VIAL ONE (12:02)
[2021-01-26] MEDS: ROSUVASTATIN CA 10 MG TABLET (FP) PO SCH (21:50)
[2021-01-27] MEDS: GABAPENTIN 300 MG CAPSULE PO SCH ×3 (05:48→21:13)
[2021-01-27] MEDS: FUROSEMIDE 40 MG/4 ML INJECTABLE VIAL IVPUSH SCH (05:48)
[2021-01-27] MEDS: INSULIN (LEVEMIR) 100 UNITS/ML UNITS SQ SCH ×2 (06:11→21:13)
[2021-01-27] MEDS: LEVOTHYROXINE NA 112 MCG TABLET (FP) PO SCH (06:11)
[2021-01-27] MEDS: INSULIN SLIDING SCALE (NOVOLOG) 1 VIAL SQ SCH ×4 (06:11→21:16)
[2021-01-27] MEDS: ALBUTEROL SO4 2.5/IPRATROPIUM 0.5 INH SOL 3 ML VIAL.NEB. NEB SCH ×4 (08:25→20:15)
[2021-01-27 08:32] LABS: HEMATOCRIT 25.2 % (32.4-45.2); HEMOGLOBIN 8.5 GM/dL (10.7-15.3); MCHC 33.9 g/dl (32.0-36.0); MEAN CELL VOLUME 85.4 fl (80-96); MEAN PLT VOLUME 9.7 fl (7.5-11.1); PLATELET COUNT 244 K/MM3 (134-434); RBC 2.95 M/mm3 (3.60-5.2); RDW 14.6 % (11.6-15.6); WHITE BLOOD COUNT 8.8 K/mm3 (4.0-10.0)
[2021-01-27 09:02] LABS: ALBUMIN 2.7 g/dl (3.4-5.0); BLOOD UREA NITROGEN 66.7 mg/dL (7-18); CALCIUM 8.4 mg/dL (8.5-10.1)
[2021-01-27 09:06] LABS: CREATININE 2.2 mg/dL (0.55-1.3)
[2021-01-27 09:07] LABS: BILIRUBIN,TOTAL 0.5 mg/dL (0.2-1); TOT PROT 6.1 g/dl (6.4-8.2)
[2021-01-27] MEDS: FERROUS SO4 325 MG TABLET (FP) PO SCH ×2 (10:20→21:13)
[2021-01-27] MEDS: METOPROLOL TARTRATE 25 MG TABLET (FP) PO SCH ×2 (10:20→21:13)
[2021-01-27] MEDS: PANTOPRAZOLE SODIUM 40 MG VIAL IVPUSH SCH (10:20)
[2021-01-27] MEDS: ROSUVASTATIN CA 10 MG TABLET (FP) PO SCH (21:13)
[2021-01-27] MEDS ORDERED: INSULIN (NOVOLOG) ASPART 100 UNITS/ML 10ML VIAL ONE (21:15)
[2021-01-28] MEDS: LEVOTHYROXINE NA 112 MCG TABLET (FP) PO SCH (06:16)
[2021-01-28] MEDS: INSULIN SLIDING SCALE (NOVOLOG) 1 VIAL SQ SCH ×4 (06:16→23:53)
[2021-01-28] MEDS: GABAPENTIN 300 MG CAPSULE PO SCH ×3 (06:16→22:20)
[2021-01-28] MEDS: INSULIN (LEVEMIR) 100 UNITS/ML UNITS SQ SCH (06:19)
[2021-01-28] MEDS: ALBUTEROL SO4 2.5/IPRATROPIUM 0.5 INH SOL 3 ML VIAL.NEB. NEB SCH ×4 (07:20→20:41)
[2021-01-28 07:50] LABS: BASO % 0.6 % (0-2.0); EOS % 4.3 % (0-4.5); HEMATOCRIT 26.7 % (32.4-45.2); HEMOGLOBIN 8.9 GM/dL (10.7-15.3); LYMPH % 21.5 % (8-40); MCH 29.1 pg (25.7-33.7); MCHC 33.5 g/dl (32.0-36.0); MEAN CELL VOLUME 86.8 fl (80-96); MEAN PLT VOLUME 9.7 fl (7.5-11.1); MONO % 9.4 % (3.8-10.2); NEUT % 64.2 % (42.8-82.8); PLATELET COUNT 254 K/MM3 (134-434); RBC 3.07 M/mm3 (3.60-5.2); RDW 14.8 % (11.6-15.6); WHITE BLOOD COUNT 8.3 K/mm3 (4.0-10.0)
[2021-01-28 08:15] LABS: CALCIUM 8.7 mg/dL (8.5-10.1)
[2021-01-28 08:16] LABS: ALBUMIN 2.8 g/dl (3.4-5.0); BLOOD UREA NITROGEN 64.2 mg/dL (7-18)
[2021-01-28 08:17] LABS: CREATININE 1.9 mg/dL (0.55-1.3)
[2021-01-28 08:19] LABS: TOT PROT 6.4 g/dl (6.4-8.2)
[2021-01-28 08:21] LABS: BILIRUBIN,TOTAL 0.5 mg/dL (0.2-1)
[2021-01-28] MEDS: PANTOPRAZOLE SODIUM 40 MG VIAL IVPUSH SCH (11:15)
[2021-01-28] MEDS: FUROSEMIDE 40 MG/4 ML INJECTABLE VIAL IVPUSH SCH (11:16)
[2021-01-28] MEDS: FERROUS SO4 325 MG TABLET (FP) PO SCH ×2 (11:16→22:14)
[2021-01-28] MEDS: CARVEDILOL 6.25 MG TABLET (FP) PO SCH ×2 (11:16→22:14)
[2021-01-28] MEDS: BUDESONIDE/FORMETEROL FUMARATE 160/4.5 mcg INHALER IH SCH ×2 (13:21→22:00)
[2021-01-28] MEDS ORDERED: PT OWN MED DRAWER 7, Y5N ONE (16:42)
[2021-01-28] MEDS: ACETAMINOPHEN 325 MG TABLET (FP) PO PRN (22:14)
[2021-01-28] MEDS: ROSUVASTATIN CA 10 MG TABLET (FP) PO SCH (22:14)
[2021-01-29] MEDS: GABAPENTIN 300 MG CAPSULE PO SCH ×3 (07:04→22:47)
[2021-01-29] MEDS: LEVOTHYROXINE NA 112 MCG TABLET (FP) PO SCH (07:04)
[2021-01-29] MEDS: INSULIN (LEVEMIR) 100 UNITS/ML UNITS SQ SCH ×3 (07:10→22:47)
[2021-01-29] MEDS: INSULIN SLIDING SCALE (NOVOLOG) 1 VIAL SQ SCH ×4 (07:23→22:48)
[2021-01-29] MEDS: ALBUTEROL SO4 2.5/IPRATROPIUM 0.5 INH SOL 3 ML VIAL.NEB. NEB SCH ×3 (07:35→20:50)
[2021-01-29] MEDS: FERROUS SO4 325 MG TABLET (FP) PO SCH ×2 (11:27→22:51)
[2021-01-29] MEDS: CARVEDILOL 6.25 MG TABLET (FP) PO SCH ×2 (11:27→22:47)
[2021-01-29] MEDS: FUROSEMIDE 40 MG/4 ML INJECTABLE VIAL IVPUSH SCH (11:28)
[2021-01-29] MEDS: PANTOPRAZOLE SODIUM 40 MG VIAL IVPUSH SCH (11:28)
[2021-01-29] MEDS: BUDESONIDE/FORMETEROL FUMARATE 160/4.5 mcg INHALER IH SCH ×2 (11:28→23:05)
[2021-01-29] MEDS: ROSUVASTATIN CA 10 MG TABLET (FP) PO SCH (22:47)
[2021-01-30] MEDS: INSULIN SLIDING SCALE (NOVOLOG) 1 VIAL SQ SCH ×4 (06:43→22:41)
[2021-01-30] MEDS: GABAPENTIN 300 MG CAPSULE PO SCH ×3 (06:43→22:39)
[2021-01-30] MEDS: INSULIN (LEVEMIR) 100 UNITS/ML UNITS SQ SCH ×2 (06:44→22:39)
[2021-01-30] MEDS: LEVOTHYROXINE NA 112 MCG TABLET (FP) PO SCH (06:44)
[2021-01-30] MEDS ORDERED: INSULIN (NOVOLOG) ASPART 100 UNITS/ML 10ML VIAL ONE ×2 (06:56→22:13)
[2021-01-30 07:27] LABS: BASO % 0.6 % (0-2.0); EOS % 5.6 % (0-4.5); HEMATOCRIT 27.2 % (32.4-45.2); LYMPH % 27.7 % (8-40); MCH 28.8 pg (25.7-33.7); MCHC 33.2 g/dl (32.0-36.0); MEAN CELL VOLUME 86.7 fl (80-96); MEAN PLT VOLUME 9.6 fl (7.5-11.1); MONO % 10.3 % (3.8-10.2); NEUT % 55.8 % (42.8-82.8); PLATELET COUNT 229 K/MM3 (134-434); RBC 3.13 M/mm3 (3.60-5.2); RDW 14.8 % (11.6-15.6)
[2021-01-30 07:45] LABS: ALBUMIN 2.8 g/dl (3.4-5.0); BLOOD UREA NITROGEN 60.5 mg/dL (7-18); CALCIUM 8.2 mg/dL (8.5-10.1)
[2021-01-30 07:50] LABS: BILIRUBIN,TOTAL 0.4 mg/dL (0.2-1)
[2021-01-30] MEDS: ALBUTEROL SO4 2.5/IPRATROPIUM 0.5 INH SOL 3 ML VIAL.NEB. NEB SCH ×2 (08:14→20:10)
[2021-01-30] MEDS ORDERED: PT OWN MED DRAWER 7, Y5N ONE ×2 (09:30→09:31)
[2021-01-30] MEDS: FUROSEMIDE 40 MG/4 ML INJECTABLE VIAL IVPUSH SCH (10:17)
[2021-01-30] MEDS: CARVEDILOL 6.25 MG TABLET (FP) PO SCH ×2 (10:17→22:38)
[2021-01-30] MEDS: BUDESONIDE/FORMETEROL FUMARATE 160/4.5 mcg INHALER IH SCH ×2 (10:19→22:39)
[2021-01-30] MEDS: FERROUS SO4 325 MG TABLET (FP) PO SCH ×2 (10:23→22:39)
[2021-01-30] MEDS: ACETAMINOPHEN 325 MG TABLET (FP) PO PRN ×2 (12:29→22:38)
[2021-01-30] MEDS: ROSUVASTATIN CA 10 MG TABLET (FP) PO SCH (22:38)
[2021-01-31] MEDS: GABAPENTIN 300 MG CAPSULE PO SCH ×3 (05:44→22:15)
[2021-01-31] MEDS: INSULIN (LEVEMIR) 100 UNITS/ML UNITS SQ SCH ×2 (06:02→22:16)
[2021-01-31] MEDS: LEVOTHYROXINE NA 112 MCG TABLET (FP) PO SCH (06:03)
[2021-01-31] MEDS: INSULIN SLIDING SCALE (NOVOLOG) 1 VIAL SQ SCH ×4 (06:03→22:15)
[2021-01-31 07:34] LABS: BASO % 0.3 % (0-2.0); EOS % 1.4 % (0-4.5); HEMATOCRIT 26.3 % (32.4-45.2); HEMOGLOBIN 8.8 GM/dL (10.7-15.3); LYMPH % 7.3 % (8-40); MCH 28.8 pg (25.7-33.7); MCHC 33.3 g/dl (32.0-36.0); MEAN CELL VOLUME 86.4 fl (80-96); MEAN PLT VOLUME 9.8 fl (7.5-11.1); MONO % 5.4 % (3.8-10.2); NEUT % 85.6 % (42.8-82.8); PLATELET COUNT 181 K/MM3 (134-434); RBC 3.05 M/mm3 (3.60-5.2); RDW 14.9 % (11.6-15.6); WHITE BLOOD COUNT 8.9 K/mm3 (4.0-10.0)
[2021-01-31 07:40] LABS: CALCIUM 7.8 mg/dL (8.5-10.1)
[2021-01-31 07:41] LABS: BLOOD UREA NITROGEN 60.1 mg/dL (7-18); MAGNESIUM 1.5 mg/dL (1.8-2.4)
[2021-01-31 07:44] LABS: CREATININE 2.1 mg/dL (0.55-1.3)
[2021-01-31] MEDS: FUROSEMIDE 40 MG/4 ML INJECTABLE VIAL IVPUSH SCH (09:10)
[2021-01-31 09:32] LABS: EPI CELLS 6 /uL (0-25.1); HYALINE CASTS 0 /uL (0-3.1); URINE APPEARANCE CLEAR; URINE BACTERIA >9,000 /uL (0-1359); URINE BILIRUBIN NEGATIVE (NEGATIVE); URINE COLOR YELLOW; URINE GLUCOSE (UA) NEGATIVE (NEGATIVE); URINE KETONE NEGATIVE (NEGATIVE); URINE LEUK ESTERASE TRACE (NEGATIVE); URINE NITRITE NEGATIVE (NEGATIVE); URINE PROTEIN 2+ (NEGATIVE); URINE RBC 30 /uL (0-23.9); URINE UROBILINOGEN 0.2 mg/dL (0.2-1.0); URINE WBC 54 /uL (0-25.8)
[2021-01-31] MEDS: CARVEDILOL 6.25 MG TABLET (FP) PO SCH ×2 (10:53→22:14)
[2021-01-31] MEDS: FERROUS SO4 325 MG TABLET (FP) PO SCH ×2 (10:54→22:14)
[2021-01-31] MEDS: BUDESONIDE/FORMETEROL FUMARATE 160/4.5 mcg INHALER IH SCH ×2 (10:54→22:15)
[2021-01-31] MEDS ORDERED: MAGNESIUM SULF 50% (8.12 MEQ/2 ML-1 GM VIAL) IVPB ONE (14:01)
[2021-01-31] MEDS ORDERED: PIPERACILLIN/TAZOBACTAM 3.375 GM VIAL IVPB ONE ×2 (17:10→20:49)
[2021-01-31] MEDS ORDERED: DEXTROSE 5%-WATER - 50 ML IVPB ONE ×2 (17:10→20:50)
[2021-01-31] MEDS: ACETAMINOPHEN 325 MG TABLET (FP) PO PRN (17:25)
[2021-01-31] MEDS: PIPERACILLIN/TAZOB 3.375 GM 3.375 GM in DEXTROSE 5%-WATER - 50 ML IVPB SCH ×2 (19:05→21:16)
[2021-01-31] MEDS: ROSUVASTATIN CA 10 MG TABLET (FP) PO SCH (22:14)
[2021-02-01] MEDS: CARVEDILOL 6.25 MG TABLET (FP) PO SCH ×3 (00:25→22:14)
[2021-02-01] MEDS: GABAPENTIN 300 MG CAPSULE PO SCH ×4 (00:25→22:16)
[2021-02-01] MEDS: ROSUVASTATIN CA 10 MG TABLET (FP) PO SCH ×2 (00:26→22:14)
[2021-02-01] MEDS: FERROUS SO4 325 MG TABLET (FP) PO SCH ×3 (00:26→22:15)
[2021-02-01] MEDS: INSULIN (LEVEMIR) 100 UNITS/ML UNITS SQ SCH ×3 (00:34→22:25)
[2021-02-01] MEDS ORDERED: PIPERACILLIN/TAZOBACTAM 3.375 GM VIAL IVPB ONE ×2 (01:03→09:12)
[2021-02-01] MEDS: PIPERACILLIN/TAZOB 3.375 GM 3.375 GM in DEXTROSE 5%-WATER - 50 ML IVPB SCH ×2 (03:30→10:07)
[2021-02-01] MEDS: INSULIN SLIDING SCALE (NOVOLOG) 1 VIAL SQ SCH ×4 (06:03→22:26)
[2021-02-01] MEDS: LEVOTHYROXINE NA 112 MCG TABLET (FP) PO SCH (06:04)
[2021-02-01 07:18] LABS: HEMATOCRIT 26.4 % (32.4-45.2); HEMOGLOBIN 8.9 GM/dL (10.7-15.3); MCH 29.2 pg (25.7-33.7); MCHC 33.7 g/dl (32.0-36.0); MEAN CELL VOLUME 86.5 fl (80-96); MEAN PLT VOLUME 9.9 fl (7.5-11.1); PLATELET COUNT 159 K/MM3 (134-434); RBC 3.06 M/mm3 (3.60-5.2); WHITE BLOOD COUNT 8.9 K/mm3 (4.0-10.0)
[2021-02-01 07:35] LABS: CALCIUM 8.1 mg/dL (8.5-10.1)
[2021-02-01 07:36] LABS: BLOOD UREA NITROGEN 60.7 mg/dL (7-18)
[2021-02-01 07:39] LABS: CREATININE 2.6 mg/dL (0.55-1.3)
[2021-02-01 07:40] LABS: BILIRUBIN,TOTAL 0.5 mg/dL (0.2-1)
[2021-02-01 07:43] LABS: ALBUMIN 2.4 g/dl (3.4-5.0)
[2021-02-01 07:47] LABS: TOT PROT 5.8 g/dl (6.4-8.2)
[2021-02-01] MEDS ORDERED: DEXTROSE 5%-WATER - 50 ML IVPB ONE ×3 (09:12→21:32)
[2021-02-01] MEDS ORDERED: SODIUM CHLORIDE 500 ML IV STA (09:31)
[2021-02-01] MEDS ORDERED: FUROSEMIDE 40 MG TABLET (FP) PO SCH (10:00)
[2021-02-01] MEDS: ACETAMINOPHEN 325 MG TABLET (FP) PO PRN (10:06)
[2021-02-01] MEDS: BUDESONIDE/FORMETEROL FUMARATE 160/4.5 mcg INHALER IH SCH ×2 (10:08→22:28)
[2021-02-01] MEDS ORDERED: SODIUM CHLORIDE 1,000 ML IV SCH (12:15)
[2021-02-01] MEDS ORDERED: PIPERACILLIN/TAZOBACTAM 2.25 GM VIAL IVPB ONE ×2 (14:52→21:32)
[2021-02-01] MEDS ORDERED: PIPERACILLIN/TAZOB 3.375 GM 3.375 GM in DEXTROSE 5%-WATER - 50 ML IVPB SCH ×2 (15:00→18:00)
[2021-02-01] MEDS: PIPERACILLIN/TAZOB 2.25 GM 2.25 GM in DEXTROSE 5%-WATER - 50 ML IVPB SCH ×2 (15:05→22:13)
[2021-02-01] MEDS ORDERED: INSULIN (NOVOLOG) ASPART 100 UNITS/ML 10ML VIAL ONE (21:31)
[2021-02-01 22:39] VITALS: BMI 32.3
[2021-02-02] MEDS ORDERED: PIPERACILLIN/TAZOBACTAM 2.25 GM VIAL IVPB ONE ×4 (02:37→21:32)
[2021-02-02] MEDS ORDERED: DEXTROSE 5%-WATER - 50 ML IVPB ONE ×4 (02:38→21:32)
[2021-02-02] MEDS: PIPERACILLIN/TAZOB 2.25 GM 2.25 GM in DEXTROSE 5%-WATER - 50 ML IVPB SCH ×4 (02:48→21:45)
[2021-02-02] MEDS: GABAPENTIN 300 MG CAPSULE PO SCH ×3 (06:04→21:44)
[2021-02-02] MEDS: LEVOTHYROXINE NA 112 MCG TABLET (FP) PO SCH (06:04)
[2021-02-02] MEDS: INSULIN SLIDING SCALE (NOVOLOG) 1 VIAL SQ SCH ×4 (06:12→21:56)
[2021-02-02] MEDS: INSULIN (LEVEMIR) 100 UNITS/ML UNITS SQ SCH ×2 (06:12→21:55)
[2021-02-02 07:38] LABS: HEMATOCRIT 25.7 % (32.4-45.2); HEMOGLOBIN 8.3 GM/dL (10.7-15.3); MCHC 32.2 g/dl (32.0-36.0); MEAN PLT VOLUME 10.3 fl (7.5-11.1); PLATELET COUNT 147 K/MM3 (134-434); RBC 2.95 M/mm3 (3.60-5.2); RDW 14.9 % (11.6-15.6); WHITE BLOOD COUNT 6.9 K/mm3 (4.0-10.0)
[2021-02-02 08:16] LABS: ALBUMIN 2.5 g/dl (3.4-5.0); CALCIUM 8.2 mg/dL (8.5-10.1)
[2021-02-02 08:19] LABS: BLOOD UREA NITROGEN 54.8 mg/dL (7-18); CREATININE 2.5 mg/dL (0.55-1.3)
[2021-02-02 08:21] LABS: BILIRUBIN,TOTAL 0.4 mg/dL (0.2-1)
[2021-02-02] MEDS: BUDESONIDE/FORMETEROL FUMARATE 160/4.5 mcg INHALER IH SCH ×2 (09:10→21:57)
[2021-02-02] MEDS: CARVEDILOL 6.25 MG TABLET (FP) PO SCH ×2 (09:10→21:44)
[2021-02-02] MEDS: FERROUS SO4 325 MG TABLET (FP) PO SCH ×2 (09:10→21:44)
[2021-02-02] MEDS ORDERED: ALBUTEROL SO4 2.5/IPRATROPIUM 0.5 INH SOL 3 ML VIAL.NEB. NEB ONE (20:13)
[2021-02-02] MEDS: ROSUVASTATIN CA 10 MG TABLET (FP) PO SCH (21:44)
[2021-02-02] MEDS: ACETAMINOPHEN 325 MG TABLET (FP) PO PRN (23:37)
[2021-02-03] MEDS: INSULIN SLIDING SCALE (NOVOLOG) 1 VIAL SQ SCH ×2 (06:07→11:52)
[2021-02-03] MEDS: INSULIN (LEVEMIR) 100 UNITS/ML UNITS SQ SCH (06:07)
[2021-02-03] MEDS: LEVOTHYROXINE NA 112 MCG TABLET (FP) PO SCH (06:07)
[2021-02-03] MEDS: GABAPENTIN 300 MG CAPSULE PO SCH (06:07)
[2021-02-03 07:21] LABS: HEMATOCRIT 24.3 % (32.4-45.2); HEMOGLOBIN 8.3 GM/dL (10.7-15.3); MCH 29.2 pg (25.7-33.7); MCHC 34.1 g/dl (32.0-36.0); MEAN CELL VOLUME 85.7 fl (80-96); MEAN PLT VOLUME 10.2 fl (7.5-11.1); PLATELET COUNT 154 K/MM3 (134-434); RBC 2.83 M/mm3 (3.60-5.2); RDW 14.6 % (11.6-15.6); WHITE BLOOD COUNT 6.2 K/mm3 (4.0-10.0)
[2021-02-03 07:51] LABS: ALBUMIN 2.5 g/dl (3.4-5.0); BLOOD UREA NITROGEN 58.1 mg/dL (7-18); CALCIUM 8.2 mg/dL (8.5-10.1)
[2021-02-03 07:54] LABS: CREATININE 2.5 mg/dL (0.55-1.3)
[2021-02-03 07:56] LABS: BILIRUBIN,TOTAL 0.5 mg/dL (0.2-1); TOT PROT 6.1 g/dl (6.4-8.2)
[2021-02-03] MEDS: FERROUS SO4 325 MG TABLET (FP) PO SCH (09:58)
[2021-02-03] MEDS: CARVEDILOL 6.25 MG TABLET (FP) PO SCH (09:58)
[2021-02-03] MEDS: BUDESONIDE/FORMETEROL FUMARATE 160/4.5 mcg INHALER IH SCH (09:59)
[2021-02-03] MEDS ORDERED: CEFUROXIME AXETIL 250 MG TABLET PO SCH (10:00)
[2021-02-03 16:30] VITALS: BP 123/54; PULSE 64; TEMP 98.4
== END 2021-02-03 15:31 | disposition home or self-care (01) | DRG 291 ==
LOC: JER 01:18 → JERBED 06:20 → J5S 18:38 → J4W 01-27 18:20 → J8W 01-30 21:28 → J4W 01-30 21:31 → J7W 02-02 11:36
PROVIDERS: ADMIT Student in an Organized Health Care Education/Training Program; ATTEND Internal Medicine
DX: I13.0 Hypertensive heart and chronic kidney disease with heart failure and stage 1 through stage 4 chronic kidney disease, or unspecified chronic kidney disease (principal); I50.23 Acute on chronic systolic (congestive) heart failure; J44.1 Chronic obstructive pulmonary disease with (acute) exacerbation; I24.8 Other forms of acute ischemic heart disease; N39.0 Urinary tract infection, site not specified; N17.9 Acute kidney failure, unspecified; N18.9 Chronic kidney disease, unspecified; E03.9 Hypothyroidism, unspecified; E11.9 Type 2 diabetes mellitus without complications; I25.10 Atherosclerotic heart disease of native coronary artery without angina pectoris; K21.9 Gastro-esophageal reflux disease without esophagitis; R74.01 Elevation of levels of liver transaminase levels; E83.42 Hypomagnesemia; E88.09 Other disorders of plasma-protein metabolism, not elsewhere classified; D64.9 Anemia, unspecified; B96.1 Klebsiella pneumoniae [K. pneumoniae] as the cause of diseases classified elsewhere
CPT/HCPCS: 36415; 70450-TC; 71045-TC-FY; 76775-TC; 76856-TC; 80048; 80053; 80307; 81003; 82043; 82436; 82570; 82728; 82947; 82962; 83036; 83540; 83550; 83735; 83880; 84100; 84133; 84300; 84439; 84443; 84484; 85025; 85027; 85610; 85730; 87040; 87086; 87186; 93005; 93010; 93306-TC; 94640; 97116-GP; 97162-GP; 99285-25; C9803; J1644; U0003; U0005